=== PATIENT | female | born 1985 | race Caucasian/White ===

== ENCOUNTER 2016-04-27 19:55 | Emergency (ER) | payer SELFPAY ==
[~2016-04-27] VITALS: Ht 175.3 cm; Wt 79.0 kg
[~2016-04-27 19:55] MED LIST: BACT800T5 PO; CLIN150 PO; CLIN1CAP5 PO; HYDR-3533 PO
[2016-04-27 21:19] VITALS: BP 111/79; PULSE 94; RESP 18; TEMP 98.3; O2SAT 98
== END 2016-04-27 23:13 | disposition left against medical advice (07) ==
LOC: PHED 19:55
DX: R53.1 Weakness (principal)
CPT/HCPCS: 99281